=== PATIENT | female | born 1950 | race Caucasian/White ===

== ENCOUNTER 2023-01-26 16:31 | Inpatient (IN) | payer MEDICAID ==
[~2023-01-26] VITALS: Ht 160 cm; Wt 66.7 kg
[2023-01-26 17:00] LABS: BASOPHILS % 0.7 % (0.0-2.0); EOSINOPHILS % 6.5 % (0.0-5.0); HEMATOCRIT. 30.6 % (36.0-48.0); HEMOGLOBIN. 10.3 g/dL (12.0-16.0); LYMPHOCYTES % 33.5 % (20.0-50.0); MEAN CORPUSCULAR HEMOGLOBIN 29.9 pg (28.0-32.0); MEAN CORPUSCULAR VOLUME 88.5 fL (81.0-99.0); MEAN PLATELET VOLUME 8.8 fl (7.4-10.4); MONOCYTES % 8.9 % (2.0-8.0); NEUTROPHILS % 50.4 % (40.0-76.0); PLATELET 277 x1000/uL (130-400); RED BLOOD CELL COUNT 3.46 mill/uL (4.2-5.4); RED CELL DISTRIBUTION WIDTH 13.1 % (11.6-14.6)
[2023-01-26 17:11] LABS: D-DIMER 0.34 mg/L FEU (<0.50); PARTIAL THROMBOPLASTIN TIME 29.9 sec (23.4-31.0); PROTHROMBIN TIME 10.9 sec (9.6-11.0)
[2023-01-26 17:19] LABS: CHLORIDE 104 mEq/L (98-107)
[2023-01-27] VITALS (7 sets, daily range): BP systolic 117–155; BP diastolic 44–68
[2023-01-27] MEDS ORDERED: SODIUM CHLORIDE 0.9% 1,000 ML IV ONE (01:45)
[2023-01-27] MEDS ORDERED: HYDRALAZINE 20MG/ML VIAL IV PRN (01:45)
[2023-01-27 03:08] LABS: BASOPHILS % 0.9 % (0.0-2.0); EOSINOPHILS % 7.5 % (0.0-5.0); HEMATOCRIT. 30.7 % (36.0-48.0); HEMOGLOBIN. 10.4 g/dL (12.0-16.0); LYMPHOCYTES % 34.3 % (20.0-50.0); MEAN CORPUSCULAR HEMOGLOBIN 29.8 pg (28.0-32.0); MEAN PLATELET VOLUME 8.9 fl (7.4-10.4); MONOCYTES % 11.8 % (2.0-8.0); NEUTROPHILS % 45.5 % (40.0-76.0); PLATELET 242 x1000/uL (130-400); RED BLOOD CELL COUNT 3.49 mill/uL (4.2-5.4); RED CELL DISTRIBUTION WIDTH 12.8 % (11.6-14.6)
[2023-01-27 03:46] LABS: CHLORIDE 111 mEq/L (98-107)
[2023-01-27 03:55] LABS: CREATINE KINASE MB FRACTION 2.9 ng/mL (0.5-3.6)
[2023-01-27] MEDS ORDERED: ENOXAPARIN 40MG/0.4ML SYR SUBCUT SCH (09:00)
[2023-01-27] MEDS ORDERED: ASPI-1406 MT (10:13)
[2023-01-27] MEDS ORDERED: IBUP-2030 MT (10:15)
[2023-01-27] MEDS ORDERED: CYCL25PO15 MT (10:15)
[2023-01-27 11:49] LABS: CREATINE KINASE MB FRACTION 2.1 ng/mL (0.5-3.6)
== END 2023-01-27 14:00 | disposition home or self-care (01) | DRG 203 ==
LOC: ER 16:31 → MICUSO 17:35 → EDBEDREQ 17:49 → 3WST 01-27 00:11
PROVIDERS: ADMIT Internal Medicine; ATTEND Internal Medicine
DX: M94.0 Chondrocostal junction syndrome [Tietze] (principal); E86.0 Dehydration; I10 Essential (primary) hypertension; Z20.822 Contact with and (suspected) exposure to COVID-19; M54.2 Cervicalgia
CPT/HCPCS: 36415; 71045; 80053; 82550; 82553; 83880; 84443; 84484; 85025; 85379; 87426; 93005; 93306; 99285; C9803; J1650